=== PATIENT | male | born 1960 | race Caucasian/White ===

== ENCOUNTER 2018-09-14 19:17 | Emergency (ER) | payer MEDICARE, OTHER ==
[~2018-09-14] VITALS: Ht 172.7 cm; Wt 113.6 kg
[2018-09-14] MEDS ORDERED: AMLODIPINE2.5 MG PO (19:35)
[2018-09-14] MEDS ORDERED: HYDRALAZINE10 MG PO (19:35)
[2018-09-14] MEDS ORDERED: ALTACE2.5 MG PO (19:36)
[2018-09-14] MEDS ORDERED: CLONIDINE0.1 MG PO (19:36)
[2018-09-14 20:18] LABS: HEMATOCRIT 33.1 % (39.0-50.0); HEMOGLOBIN 11.1 g/dl (14.0-18.0); IMMATURE GRANULOCYTES 0.8 % (0.0-5.0); MEAN CELL VOLUME 93.5 fL CALC (80.0-100.0); MEAN CORPUSCULAR HGB 31.4 pG CALC (26.0-32.0); MEAN CORPUSCULAR HGB CONC 33.5 g/L CALC (32.0-36.0); NEUT# 11.06 thou/uL (1.82-7.42); RED BLOOD COUNT 3.54 mill/uL (4.70-6.10); RED CELL DISTRI WIDTH 13.2 % (11.5-15.5)
[2018-09-14 20:33] LABS: ALBUMIN 3.3 g/dL (3.2-5.0); BILIRUBIN, TOTAL 0.3 mg/dL (0.0-1.4); POTASSIUM 3.3 mmol/l (3.5-5.1); TOTAL PROTEIN 5.9 g/dL (6.3-8.2)
[2018-09-14 20:58] LABS: URINE BILIRUBIN - DIPSTICK NEGATIVE (NEGATIVE); URINE BLOOD DIPSTICK LARGE (NEGATIVE); URINE GLUCOSE - DIPSTICK NEGATIVE (NEGATIVE); URINE KETONE NEGATIVE (NEGATIVE); URINE LEUK ESTERASE NEGATIVE (NEGATIVE); URINE NITRITE - DIPSTICK NEGATIVE (Negative); URINE PROTEIN - DIPSTICK 30 mg/dL (NEG-TRACE); URINE UROBILINOGEN - DIPSTICK 0.2 E.U./dL (0.2)
[2018-09-14 20:59] LABS: URINE COLOR DK. YELLOW
[2018-09-14 21:00] LABS: URINE RBC 25-50 RBC/hpf (0-5)
[2018-09-14] MEDS ORDERED: TRAMADOL HCL50 MG PO (22:35)
[2018-09-14] MEDS ORDERED: PHENERGAN25 MG/TAB PO (22:35)
[2018-09-14] MEDS ORDERED: METRONIDAZOL250 MG PO (22:35)
[2018-09-14] MEDS ORDERED: CIPROFLOXACIN250 MG PO (22:35)
[2018-09-14 22:46] VITALS: BP 138/60
== END 2018-09-14 22:46 | disposition home or self-care (01) ==
LOC: ED 19:17
PROVIDERS: Family Medicine
DX: K52.9 Noninfective gastroenteritis and colitis, unspecified (principal); K57.32 Diverticulitis of large intestine without perforation or abscess without bleeding; I12.0 Hypertensive chronic kidney disease with stage 5 chronic kidney disease or end stage renal disease; N18.6 End stage renal disease; Z99.2 Dependence on renal dialysis

== ENCOUNTER 2022-05-04 18:16 | Emergency (ER) | payer MEDICARE ==
[~2022-05-04] VITALS: Ht 172.7 cm; Wt 113.0 kg
[2022-05-04] VITALS (10 sets, daily range): BP systolic 97–156; BP diastolic 46–105
[~2022-05-04 18:16] MED LIST: ALTACE2.5 MG PO; AMLODIPINE2.5 MG PO; CIPROFLOXACIN250 MG PO; CLONIDINE0.1 MG PO; HYDRALAZINE10 MG PO; METRONIDAZOL250 MG PO; PHENERGAN25 MG/TAB PO; TRAMADOL HCL50 MG PO
[2022-05-04] MEDS ORDERED: TRAMADOL HCL50 MG PO (21:55)
== END 2022-05-04 22:25 | disposition home or self-care (01) ==
LOC: ED 18:16
DX: S16.1XXA Strain of muscle, fascia and tendon at neck level, initial encounter (principal); S46.912A Strain of unspecified muscle, fascia and tendon at shoulder and upper arm level, left arm, initial encounter; T14.8XXA Other injury of unspecified body region, initial encounter; I12.0 Hypertensive chronic kidney disease with stage 5 chronic kidney disease or end stage renal disease; N18.6 End stage renal disease; W01.0XXA Fall on same level from slipping, tripping and stumbling without subsequent striking against object, initial encounter; Z99.2 Dependence on renal dialysis